=== PATIENT | male | born 1960 | race Caucasian/White ===

== ENCOUNTER 2018-02-08 14:07 | Emergency (ER) | payer OTHER ==
[~2018-02-08] VITALS: Ht 167.6 cm; Wt 68.0 kg
[~2018-02-08 14:07] MED LIST: ALDACTONE25 MG PO; ASPIR 8181 MG PO; BACTRIM DS TAB1 EACH PO; CARVEDILOL12.5 MG PO; EFFIENT10 MG PO; LASIX 40 MG TAB40 M2 PO; LIPITOR40 MG PO; LISINOPRIL2.5 M1 PO; PLAVIX 75 MG TA75 M1 PO
[2018-02-08] MEDS ORDERED: CARVEDILOL12.5 MG PO (14:22)
== END 2018-02-08 14:33 | disposition home or self-care (01) ==
LOC: ER 14:07
DX: Z76.0 Encounter for issue of repeat prescription (principal); I11.0 Hypertensive heart disease with heart failure; E78.5 Hyperlipidemia, unspecified; I25.2 Old myocardial infarction; F17.210 Nicotine dependence, cigarettes, uncomplicated

== ENCOUNTER → 2018-02-17 | Outpatient (CLI) | payer OTHER ==
--- NOTE | ~2018-02-17 | 2DMMODE ---
[facility] [address] [place] [address] 2 D/M-MODE ECHOCARDIOGRAM Name: DIANDRA STRONG Room #: REG [facility]#: [id number] Admission: 02/17/18 Attend Phys: Charles Jose Discharge: Date of : 64 Date of Service: 02/17/18 1647 Report #: [id number] THIS REPORT FOR: //name// APPROVED REPORT Study performed: 02/17/2018 15:11:11 EXAM: Comprehensive 2D, Doppler, and color-flow Echocardiogram Patient Location: Out-Patient Room #: Echo lab 1 Status: routine BSA: 1.79 HR: 96 bpm BP: 126/78 mmHg Other Information Study Quality: Good Indications ICD: Cardiomyopathy Hypertension/HDD 2D Dimensions RVDd: 27.76 mm LVEF(%): 18.87 (>50%) IVSd: 9.88 (7-11mm) LVOT Diam: 26.17 (18-24mm) LVDd: 68.92 mm PWd: 10.01 (7-11mm) Ascending Ao: 33.37 (22-36mm) LVDs: 62.85 (25-40mm) Aortic Root: 34.13 mm IVC: 22.00 mm Mattson's LVEF: 18.87 % Volumes Left Atrial Volume (Systole) Single Plane 4CH: 57.89 mL Single Plane 2CH: 68.74 mL LA ESV Index: 39.00 mL/m2 Aortic Valve AoV Peak Tho.: 0.95 m/s AO Peak Gr.: 3.59 mmHg LVOT Max P.29 mmHg LVOT Max V: 0.76 m/s ROBERTO Vmax: 4.29 cm2 Pulmonary Valve PV Peak Tho.: 0.81 m/s PV Peak Gr.: 2.60 mmHg [facility] [address] [place] [address] 2 D/M-MODE ECHOCARDIOGRAM Name: DIANDRA STRONG Room #: REG [facility]#: [id number] Admission: 02/17/18 Attend Phys: Charles Jose Discharge: Date of : 64 Date of Service: 02/17/18 1647 Report #: [id number] Tricuspid Valve TR Peak Tho.: 2.35 m/s TR Peak Gr.: 22.04 mmHg PA Pressure: 32.00 mmHg Left Ventricle Left ventricle is dilated. There is normal left ventricular wall thickness. Left ventricular ejection fraction is severely decreased. LVEF is 15%. This study is not technically sufficient to allow evaluation of the LV diastolic function. Right Ventricle The right ventricle is normal size. The right ventricular systolic function is normal. Atria The left atrium size is normal. The right atrium size is normal. Aortic Valve The aortic valve is normal in structure. No aortic regurgitation is present. There is no aortic valvular stenosis. Mitral Valve The mitral valve is normal in structure. Mild to moderate mitral regurgitation. No evidence of mitral valve stenosis. Tricuspid Valve The tricuspid valve is normal in structure. Trace tricuspid regurgitation. Pulmonic Valve The pulmonary valve is normal in structure. There is no pulmonic valvular regurgitation. Great Vessels The aortic root is normal in size. IVC is dilated and collapses <50% with inspiration. Pericardium There is no pericardial effusion. <Conclusion> Left ventricular ejection fraction is severely decreased. LVEF is 15%. [facility] [address] [place] [address] 2 D/M-MODE ECHOCARDIOGRAM Name: DIANDRA STRONG Room #: REG [facility]#: [id number] Admission: 02/17/18 Attend Phys: Charles Jose Discharge: Date of : 64 Date of Service: 02/17/181646 Report #: [id number] The aortic valve is normal in structure. No aortic regurgitation or stenosis The mitral valve is normal in structure. Mild to moderate mitral regurgitation. Pulmonary artery pressure could not be reliably ascertained There is no pericardial effusion. <ELECTRONICALLY SIGNED> By: Bin Ventura MD, [facility] 02/17/181646 46 [id number] Bin Ventura MD, FACC /INF
== END ==
LOC: CV 02-16 16:00
DX: I34.0 Nonrheumatic mitral (valve) insufficiency (principal)

== ENCOUNTER 2018-03-24 09:50 | Emergency (ER) | payer OTHER ==
[~2018-03-24] VITALS: Ht 167.6 cm; Wt 68.0 kg
[2018-03-24 10:26] LABS: ABSOLUTE NEUTROPHILS 7.7 thou/uL (1.4-8.2); BASOPHILS 0.6 % (0.0-2.0); EOSINOPHILS 1.1 % (0.0-3.0); HEMATOCRIT 46.6 % (42.0-52.0); HEMOGLOBIN 16.2 gm/dL (14.0-18.0); LYMPHOCYTES 19.7 % (24.0-44.0); MCH 33.1 pg (26.0-34.0); MCHC 34.7 g/dL (28.0-37.0); MCV 95.2 fL (80.0-100.0); MONOCYTES 10.3 % (1.0-8.0); PLATELET COUNT 257 thou/uL (150-400); POLYS 68.3 % (36.0-66.0); RBC 4.89 mil/uL (4.50-6.00); RDW 12.4 % (10.5-14.5); WBC 11.2 thou/uL (4.0-11.0)
[2018-03-24 10:27] LABS: URINE BILIRUBIN NEGATIVE (Negative); URINE BLOOD 1+ (Negative); URINE CLARITY CLEAR; URINE COLOR YELLOW; URINE GLUCOSE-RANDOM* NEGATIVE (Negative); URINE KETONES NEGATIVE (Negative); URINE LEUKOCYTES-REFLEX NEGATIVE (Negative); URINE NITRITE-REFLEX NEGATIVE (Negative); URINE PROTEIN (DIPSTICK) NEGATIVE (Negative); URINE UROBILINOGEN 0.2 E.U./dl (0.2-1.0)
[2018-03-24 10:38] LABS: CALCIUM 9.4 mg/dL (8.5-10.1); CREATININE 0.8 mg/dL (0.7-1.3)
[2018-03-24 10:39] LABS: POTASSIUM 4.6 mmol/L (3.5-5.1)
[2018-03-24 10:53] LABS: BACTERIA-REFLEX 1-9 Few /HPF (None Seen); CASTS None Seen /LPF (None Seen); CRYSTALS None Seen /LPF (None Seen); SQUAMOUS None Seen /LPF (0-3); URINE RBC 3-10 Few /HPF (0-2); URINE WBC-REFLEX None Seen /HPF (0-5)
[2018-03-24] MEDS ORDERED: AUGMENTIN 875-1 EACH PO (12:31)
== END 2018-03-24 12:47 | disposition home or self-care (01) ==
LOC: ER 09:50
PROVIDERS: Physician Assistant
DX: K04.7 Periapical abscess without sinus (principal); E87.1 Hypo-osmolality and hyponatremia; I25.2 Old myocardial infarction; I42.0 Dilated cardiomyopathy; I50.9 Heart failure, unspecified; F17.210 Nicotine dependence, cigarettes, uncomplicated; Z95.5 Presence of coronary angioplasty implant and graft

== ENCOUNTER → 2018-05-14 | Outpatient (CLI) | payer OTHER ==
[~2018-05-14] MED LIST changes: +AUGMENTIN 875-1 EACH PO
--- NOTE | ~2018-05-14 | 2DMMODE ---
[facility] [place] [address] 2 D/M-MODE ECHOCARDIOGRAM Name: TAE,DIANDRA H Room #: REG [facility]#: [id number] Admission: 05/14/18 Attend Phys: Charles Jose Discharge: Date of : 64 Date of Service: 05/14/18 1028 Report #: [id number] THIS REPORT FOR: //name// APPROVED REPORT Study performed: 05/14/2018 09:52:56 EXAM: Comprehensive 2D, Doppler, and color-flow Echocardiogram Patient Location: Out-Patient Room #: Echo lab 2 Status: routine BSA: 1.79 HR: 86 bpm BP: 126/78 mmHg Other Information Study Quality: Good Indications Cardiomyopathy 2D Dimensions IVC: 10.00 mm Tricuspid Valve TR Peak Tho.: 2.36 m/s TR Peak Gr.: 22.22 mmHg PA Pressure: 27.00 mmHg Left Ventricle Left ventricle is dilated. There is severe global hypokinesis of the left ventricle. There is normal left ventricular wall thickness. Left ventricular ejection fraction is severely decreased. LVEF is approximately 20% This study is not technically sufficient to allow evaluation of the LV diastolic function. Right Ventricle The right ventricle is normal size. The right ventricular systolic function is normal. Atria The left atrium size is normal. The right atrium size is normal. Aortic Valve [facility] [address] [place] [address] 2 D/M-MODE ECHOCARDIOGRAM Name: DIANDRA STRONG Room #: REG [facility]#: [id number] Admission: 05/14/18 Attend Phys: Charles Jose Discharge: Date of : 64 Date of Service: 05/14/18 1028 Report #: [id number] The aortic valve is normal in structure. No aortic regurgitation is present. There is no aortic valvular stenosis. Mitral Valve The mitral valve is normal in structure. Mild mitral regurgitation. No evidence of mitral valve stenosis. Tricuspid Valve The tricuspid valve is normal in structure. There is trace tricuspid regurgitation. Estimated PAP 27 mmHg. There is no pulmonary hypertension. Pulmonic Valve Pulmonic valve is not well visualized. Great Vessels The aortic root is normal in size. IVC is normal in size and collapses >50% with inspiration. Pericardium There is no pericardial effusion. <Conclusion> Left ventricle is dilated. There is severe global hypokinesis of the left ventricle. LVEF is approximately 20% The right ventricle is normal size. The aortic valve is normal in structure. No aortic regurgitation is present. The mitral valve is normal in structure. Mild mitral regurgitation. The tricuspid valve is normal in structure. There is trace tricuspid regurgitation. Estimated PAP 27 mmHg. There is no pulmonary hypertension. There is no pericardial effusion. <ELECTRONICALLY SIGNED> By: Charles Sorensen MD 05/14/18 1028 1028 1028 Charles Sorensen MD /INF
== END ==
LOC: CV 06:42
DX: I34.0 Nonrheumatic mitral (valve) insufficiency (principal); I25.5 Ischemic cardiomyopathy

== ENCOUNTER → 2019-05-08 | Outpatient (CLI) | payer OTHER ==
--- NOTE | 2019-05-08 11:04 | 2DMMODE ---
[facility] [address] [place] [address] 2 D/M-MODE ECHOCARDIOGRAM Name: DIANDRA STRONG Room #: REG [facility]#: [id number] ������������� Admission: 05/08/19 ������������� Attend Phys: Charles Jose Discharge: ��� ������������� ��� Date of : 64 Date of Service: 05/08/19 1104 �� Report #: [id number] �������� ��������������������������������������������[id number] THIS REPORT FOR: //name// APPROVED REPORT Study performed: 05/08/2019 10:11:29 EXAM: Comprehensive 2D, Doppler, and color-flow Echocardiogram Patient Location: Out-Patient Room #: Echo Status: lab 2 BSA: 1.79 HR: 89 bpm BP: 126/78 mmHg Rhythm: NSR Other Information Study Quality: Good Indications Cardiomyopathy 2D Dimensions RVDd: 31.56 mm IVSd: 10.43 (7-11mm) LVOT Diam: 26.58 (18-24mm) LVDd: 64.57 mm PWd: 9.63 (7-11mm) Ascending Ao: 35.88 (22-36mm) LVDs: 58.15 (25-40mm) Aortic Root: 33.98 mm IVC: 9.00 mm Volumes Left Atrial Volume (Systole) Single Plane 4CH: 35.07 mL Single Plane 2CH: 34.86 mL LA ESV Index: 23.00 mL/m2 Aortic Valve AoV Peak Tho.: 0.97 m/s AO Peak Gr.: 3.80 mmHg LVOT Max P.70 mmHg LVOT Max V: 0.65 m/s ROBERTO Vmax: 3.71 cm2 Pulmonary Valve PV Peak Tho.: 0.96 m/s PV Peak Gr.: 3.69 mmHg Tricuspid Valve [facility] [address] [place] [address] 2 D/M-MODE ECHOCARDIOGRAM Name: TAEDIANDRA H Room #: [facility]#: [id number] ������������� Admission: 05/08/19 ������������� Attend Phys: Charles Jose Discharge: ��� ������������� ��� Date of : 64 Date of Service: 05/08/19 1104 �� Report #: [id number] �������� ��������������������������������������������[id number] TR Peak Tho.: 2.35 m/s TR Peak Gr.: 22.13 mmHg PA Pressure: 27.00 mmHg Left Ventricle Left ventricle is dilated. There is severe global hypokinesis of the left ventricle. There is normal left ventricular wall thickness. Left ventricular ejection fraction is severely decreased. LVEF is 20%. This study is not technically sufficient to allow evaluation of the LV diastolic function. Right Ventricle The right ventricle is normal size. The right ventricular systolic function is normal. Pacemaker lead is present in the right ventricle. Atria The left atrium size is normal. The right atrium size is normal. Pacemaker lead is present in the right atrium. Aortic Valve The aortic valve is normal in structure. No aortic regurgitation is present. There is no aortic valvular stenosis. Mitral Valve The mitral valve is normal in structure. Trace mitral regurgitation. No evidence of mitral valve stenosis. Tricuspid Valve The tricuspid valve is normal in structure. There is trace tricuspid regurgitation. Estimated PAP 27 mmHg. There is no pulmonary hypertension. Pulmonic Valve The pulmonary valve is normal in structure. There is no pulmonic valvular regurgitation. Great Vessels The aortic root is normal in size. IVC is normal in size and collapses >50% with inspiration. Pericardium There is no pericardial effusion. <Conclusion> Left ventricle is dilated. LVEF is 20%. [facility] [place] [address] 2 D/M-MODE ECHOCARDIOGRAM Name: DIANDRA STRONG Room #: REG [facility]#: [id number] ������������� Admission: 05/08/19 ������������� Attend Phys: Charles Jose Discharge: ��� ������������� ��� Date of : 64 Date of Service: 05/08/19 1104 �� Report #: [id number] �������� ��������������������������������������������[id number] There is severe global hypokinesis of the left ventricle. The aortic valve is normal in structure. The mitral valve is normal in structure. Trace mitral regurgitation. The tricuspid valve is normal in structure. There is trace tricuspid regurgitation. Estimated PAP 27 mmHg. There is no pulmonary hypertension. The pulmonary valve is normal in structure. There is no pericardial effusion. ��������������������������������������������� <ELECTRONICALLY SIGNED> ���������������������������������������� By: Charles Sorensen MD ��������������������������������������������� 05/08/19 1104 D: [id number] Charles Sorensen MD /INF
== END ==
LOC: CV 04-22 07:20
DX: I42.9 Cardiomyopathy, unspecified (principal)

== ENCOUNTER → 2019-11-20 | Outpatient (CLI) | payer OTHER | LOC: SJCVC 15:01 | DX: R94.31 Abnormal electrocardiogram [ECG] [EKG] (principal); I25.5 Ischemic cardiomyopathy; I50.20 Unspecified systolic (congestive) heart failure; E78.5 Hyperlipidemia, unspecified; I25.89 Other forms of chronic ischemic heart disease; F17.210 Nicotine dependence, cigarettes, uncomplicated; Z79.899 Other long term (current) drug therapy ==

== ENCOUNTER → 2020-06-08 | Outpatient (CLI) | payer OTHER | LOC: SJCVCIMAG 05-26 11:31 | PROVIDERS: ATTEND Internal Medicine | DX: R94.31 Abnormal electrocardiogram [ECG] [EKG] (principal); I25.5 Ischemic cardiomyopathy; E78.5 Hyperlipidemia, unspecified; I50.20 Unspecified systolic (congestive) heart failure; F17.200 Nicotine dependence, unspecified, uncomplicated; Z79.899 Other long term (current) drug therapy ==

== ENCOUNTER → 2020-12-14 | Outpatient (CLI) | payer OTHER | LOC: SJCVC 10:00 | PROVIDERS: ATTEND Internal Medicine | DX: T82.111A Breakdown (mechanical) of cardiac pulse generator (battery), initial encounter (principal); I25.5 Ischemic cardiomyopathy; I50.20 Unspecified systolic (congestive) heart failure; E78.5 Hyperlipidemia, unspecified; I25.2 Old myocardial infarction; Z45.02 Encounter for adjustment and management of automatic implantable cardiac defibrillator; Z79.899 Other long term (current) drug therapy; F17.200 Nicotine dependence, unspecified, uncomplicated; Y71.8 Miscellaneous cardiovascular devices associated with adverse incidents, not elsewhere classified; Y92.89 Other specified places as the place of occurrence of the external cause ==

== ENCOUNTER → 2021-07-11 | Outpatient (CLI) | payer OTHER | LOC: SJCVCIMAG 08:42 | PROVIDERS: ATTEND Internal Medicine | DX: I51.7 Cardiomegaly (principal); I50.20 Unspecified systolic (congestive) heart failure; I25.10 Atherosclerotic heart disease of native coronary artery without angina pectoris; I25.5 Ischemic cardiomyopathy; E78.5 Hyperlipidemia, unspecified; F17.200 Nicotine dependence, unspecified, uncomplicated; Z95.810 Presence of automatic (implantable) cardiac defibrillator; Z79.899 Other long term (current) drug therapy ==